=== PATIENT | male | born 1965 | race African-American/Black ===

== ENCOUNTER 2016-11-29 10:38 | Emergency (ER) | payer BC, OTHER ==
[~2016-11-29] VITALS: Ht 185.4 cm; Wt 82.0 kg
[2016-11-29 11:28] VITALS: BP 113/83
== END 2016-11-29 14:15 | disposition home or self-care (01) ==
LOC: ER 12:23
DX: J06.9 Acute upper respiratory infection, unspecified (principal); R03.0 Elevated blood-pressure reading, without diagnosis of hypertension
CPT/HCPCS: 99282